=== PATIENT | male | born 1970 | race Hispanic/Latino ===

== ENCOUNTER → 2024-02-25 | Day surgery (SDC) | payer OTHER ==
[~2024-02-25] MED LIST: ATORVASTATIN CA20 MG PO; FENTANYL CITRATE/PF 100MCG/2 ML INJ ONE; GLYCOPYRROLATE INJ 0.2 MG/ML VIAL ONE; LIDOCAINE HCL 2% LOCAL INJ 5 ML SDV VIAL INJ ONE; LOSARTAN POTASS25 MG PO; METFORMIN HCL500 MG PO; PROPOFOL IV EMULSION 10 MG/ML 20 ML VIAL ONE; PROPOFOL IV EMULSION 50 ML IV ONE
[2024-02-25] MEDS: LACTATED RINGER'S 1,000 ML ONE (08:27)
[2024-02-25 11:05] VITALS: TEMP 97
[2024-02-25 11:50] VITALS: BP 105/80; PULSE 92; RESP 18; O2SAT 100
== END | disposition home or self-care (01) ==
LOC: OR 07:47 → EDSEX 09:00
PROVIDERS: ATTEND Internal Medicine Gastroenterology
DX: Z12.11 Encounter for screening for malignant neoplasm of colon (principal); D12.3 Benign neoplasm of transverse colon; K57.30 Diverticulosis of large intestine without perforation or abscess without bleeding; K64.8 Other hemorrhoids; K21.9 Gastro-esophageal reflux disease without esophagitis; I10 Essential (primary) hypertension; E78.5 Hyperlipidemia, unspecified; E11.9 Type 2 diabetes mellitus without complications; Z01.810 Encounter for preprocedural cardiovascular examination; Z79.84 Long term (current) use of oral hypoglycemic drugs; Z79.899 Other long term (current) drug therapy
CPT/HCPCS: 45385; 93005; J2003; J2704 ×2; J3010; J7121; 45378